=== PATIENT | male | born 1965 | race Caucasian/White ===

== ENCOUNTER 2018-04-07 12:15 | Emergency (ER) | payer SELFPAY ==
[~2018-04-07] VITALS: Ht 180.3 cm; Wt 69.0 kg
[2018-04-07 12:47] VITALS: BP 151/79
== END 2018-04-07 13:06 | disposition left against medical advice (07) ==
LOC: ER 13:05
DX: R51 Headache (principal); Z87.820 Personal history of traumatic brain injury
CPT/HCPCS: 99281